=== PATIENT | male | born 1955 | race Caucasian/White ===

== ENCOUNTER 2018-12-21 11:25 | Day surgery (SDC) | payer MEDICARE, BC ==
[2018-12-21] MEDS ORDERED: PROPOFOL 40 ML (13:32)
[2018-12-21] MEDS ORDERED: LIDOCAINE 1% (MDV) 20 ML INJ (13:33)
[2018-12-21] MEDS ORDERED: MIDAZOLAM 1 MG/ML 2 ML INJ (13:33)
== END 2018-12-21 19:25 | disposition home or self-care (01) ==
LOC: GIL 11:25
DX: K64.8 Other hemorrhoids (principal); K64.4 Residual hemorrhoidal skin tags; E11.9 Type 2 diabetes mellitus without complications; E78.5 Hyperlipidemia, unspecified; Z79.84 Long term (current) use of oral hypoglycemic drugs
CPT/HCPCS: 45378; 82962